=== PATIENT | female | born 1990 | race Caucasian/White ===

== ENCOUNTER 2017-01-30 17:53 | Emergency (ER) | payer MEDICAID, OTHER ==
[~2017-01-30] VITALS: Ht 165.1 cm; Wt 131.0 kg
[~2017-01-30 17:53] MED LIST: PREN1TAB17 PO
[2017-01-30 18:30] VITALS: Ht 165.1 cm; Wt 131.0 kg
[2017-01-30] MEDS ORDERED: HYDR-906 PO (19:05)
--- NOTE | 2017-01-30 19:05 | ERA ---
ER Documentation Chief Complaint Date/Time DATE: 01/30/17 TIME: 18:58 Chief Complaint left arm pain x 1 week after placement of control implant"Nexpanol" HPI This is a 26-year-old female presenting with a chief complaint of arm pain. Patient had a control implant put in her left arm 1-1/2 weeks ago. Patient states that this does not feel the same as the last time she had the implant implanted. Patient describes the pain as pinching against the skin. Patient rates the pain as 10 out of 10. Patient does have an appointment with the same doctor tomorrow who originally put the implants in. Patient is wanting us to take the implant out because of this causing her discomfort at the moment. Patient denies any fever or chills. ROS All systems reviewed and are negative except as per history of present illness. Medications Home Meds Reported Medications Vit-Iron Fumarate-FA ( Tablet) 1 Each Tablet, 1 EACH PO DAILY 06/19/13 Allergies Allergies: Coded Allergies: No Known Allergy (Unverified , 06/19/13) Physical Exam Vitals Vital Signs Date Time Temp Pulse Resp B/P Pulse Ox O2 Delivery O2 Flow Rate FiO2 01/30/17 18:30 97.8 80 20 145/89 99 Physical Exam Const: Morbidly obese 26-year-old female Head: Atraumatic. Eyes: Normal Conjunctiva ENT: Normal External Ears, Nose and Mouth. Neck: Full range of motion..~ No meningismus. Resp: Clear to auscultation bilaterally Cardio: Regular rate and rhythm, no murmurs Abd: Soft, non tender, non distended. Normal bowel sounds Skin: No petechiae or rashes Back: No midline or flank tenderness Ext: Bruising along anterior left upper arm that spans 5 cm in length and 1/ 2 cm in diameter. No cyanosis, or edema. Neur: Awake and alert Psych: Normal Mood and Affect Procedures/MDM Patient is presenting with left arm pain 1-1/2 weeks secondary to control implants. Have been advised by a coworker that we do not take those implants out. Since the patient has an appointment tomorrow we will go ahead and give her a 1-1/2 day prescription of [place] for symptom control until her appointment. Patient is neurovascularly intact bilaterally and I have little suspicion for internal bleeding or neurovascular compromise. Will discharge patient at this time with discharge instructions with return precautions. Departure Diagnosis: Primary Impression: Pain of left arm Additional Impression: Foreign body shouldr/arm Condition: Stable Additional Instructions: Follow-up with [employer] doctor tomorrow for implant removal/readjustment. Return the the emergency department immediately if symptoms worsen or change. If you have any questions regarding medications, ask your pharmacist or us before you leave. If any adverse reactions occur while taking your medications, discontinue the treatment and return to the emergency department immediately. Take your medications as directed, and complete the entire course of treatment. JONNATHAN PATRICK PA-C January 30, 2017 19:05
== END 2017-01-30 19:16 | disposition home or self-care (01) ==
LOC: FTE 17:53
DX: M79.602 Pain in left arm (principal)
CPT/HCPCS: 99283